=== PATIENT | male | born 1965 | race African-American/Black ===

== ENCOUNTER 2022-04-09 11:52 | Emergency (ER) | payer MEDICAID ==
[~2022-04-09] VITALS: Ht 175.3 cm; Wt 101.0 kg
[~2022-04-09 11:52] MED LIST: ATEN-42 PO; BENA-8 PO; CLOP75TA33 PO; METF-414 PO; OLAN7.5T3 PO; RANI150C12 PO; SIMV-43 PO
[2022-04-09 12:08] VITALS: BP 147/79
[2022-04-09] MEDS ORDERED: AMOX1TAB16 MT (16:00)
[2022-04-09] MEDS ORDERED: T3 PO (16:00)
== END 2022-04-09 16:33 | disposition home or self-care (01) ==
LOC: ER 12:05
DX: K04.7 Periapical abscess without sinus (principal); I10 Essential (primary) hypertension; E11.9 Type 2 diabetes mellitus without complications; Z79.899 Other long term (current) drug therapy; Z86.73 Personal history of transient ischemic attack (TIA), and cerebral infarction without residual deficits
CPT/HCPCS: 99283